=== PATIENT | male | born 1980 | race Caucasian/White ===

== ENCOUNTER 2021-03-24 12:14 | Outpatient (CLI) | payer OTHER ==
[~2021-03-24] VITALS: Ht 170.2 cm; Wt 95.5 kg
[2021-03-24 12:20] VITALS: BP 127/83
[2021-03-24] MEDS ORDERED: ACETAMINOPHEN 500 MG TAB (TYLENOL) PO PRN (12:30)
[2021-03-24] MEDS ORDERED: diphenhydrAMINE 50 MG/ML INJ (BENADRYL) IV PRN (12:30)
[2021-03-24] MEDS ORDERED: EPINEPHrine INJECTION 1 MG/ML AMP IM PRN (12:30)
[2021-03-24] MEDS ORDERED: CASIRIVIMAB/IMDEVIMAB 1,200 MG in NS (IVPB) 250 ML IV ONE (12:30)
[2021-03-24] MEDS ORDERED: ONDANSETRON 4 MG/2 ML (SDV) Z0FRAN IV PRN (12:30)
[2021-03-24 13:16] VITALS: BP 121/77
[2021-03-24 14:10] VITALS: BP 111/79
== END 2021-03-24 14:10 | disposition home or self-care (01) ==
LOC: INFUSION 12:14
PROVIDERS: ATTEND Registered Nurse Neonatal Intensive Care
DX: U07.1 COVID-19 (principal)